=== PATIENT | male | born 1995 | race Two or more races ===

== ENCOUNTER 2022-03-24 11:33 | Emergency (ER) | payer MEDICAID ==
[~2022-03-24] VITALS: Ht 177.8 cm; Wt 97.0 kg
[~2022-03-24 11:33] MED LIST: CEPH500C2 MT; DOXY-326 MT; IBUP-2029 MT
[2022-03-24 11:42] VITALS: BP 148/89
[2022-03-25] MEDS ORDERED: HYDR453.4 TP (10:45)
[2022-03-25] MEDS ORDERED: CEPH500T MT (10:45)
== END 2022-03-24 20:00 | disposition left against medical advice (07) ==
LOC: ER 12:24
DX: Z53.21 Procedure and treatment not carried out due to patient leaving prior to being seen by health care provider (principal)

== ENCOUNTER 2022-03-25 07:05 | Emergency (ER) | payer MEDICAID ==
[~2022-03-25] VITALS: Ht 177.8 cm; Wt 98.0 kg
[2022-03-25 07:30] VITALS: BP 126/90
[2022-03-25] MEDS ORDERED: HYDR453.4 TP (10:45)
[2022-03-25] MEDS ORDERED: CEPH500T MT (10:45)
== END 2022-03-25 11:09 | disposition home or self-care (01) ==
LOC: ER 07:10
DX: S80.261A Insect bite (nonvenomous), right knee, initial encounter (principal); W57.XXXA Bitten or stung by nonvenomous insect and other nonvenomous arthropods, initial encounter; Y93.89 Activity, other specified; Y92.89 Other specified places as the place of occurrence of the external cause; Y99.8 Other external cause status; Z79.899 Other long term (current) drug therapy
CPT/HCPCS: 99283